=== PATIENT | female | born 1965 | race Caucasian/White ===

== ENCOUNTER 2020-02-17 15:09 | Day surgery (SDC) | payer OTHER ==
[~2020-02-17 15:09] MED LIST: Bupivacaine PF 0.75% SDV 10 ML ONE; CEFAZOLIN 1 GM VIAL ONE; Dexamethasone 20 MG/5 ML VIAL ONE; Enoxaparin Sodium 30 MG/0.3 ML SYRINGE ONE; Lidocaine 1% PF 5 ML VIAL ONE; Lidocaine 4% PF 5 ML AMP ONE; Maxitrol 0.1% Opth Oint 3.5 GM TUBE ONE; Ondansetron PF 4 MG/2 ML Vial ONE; PROPOFOL 200 MG/20 ML VIAL ONE; Triamcinolone 40 MG/ML VIAL ONE
[2020-02-17] MEDS ORDERED: Fluorouracil 100 MG, Enoxaparin Sodium 25 MG, EPINEPHrine 0.3 MG in Ophthalmic Irrigati... IRR SCH (15:30)
[2020-02-17] MEDS ORDERED: Cyclopentolate 1% Opth Drop 2 ML BOT FS SCH (15:30)
[2020-02-17] MEDS ORDERED: Phenylephrine 2.5% Ophth Soln 5 ML BOT FS SCH (15:30)
[2020-02-17] MEDS ORDERED: Phenylephrine 2.5% Ophth Soln 5 ML BOT ONE ×3 (16:34→16:36)
[2020-02-17] MEDS ORDERED: Cyclopentolate HCl 1% 5 ML BOT ONE (16:35)
[2020-02-17] MEDS ORDERED: Midazolam HCl 2 mg/2 ml Vial ONE (16:44)
[2020-02-17] MEDS ORDERED: Fentanyl 100 MCG/2 ML VIAL ONE (17:21)
--- NOTE | 2020-02-22 09:24 | OP ---
DATE OF PROCEDURE: 02/17/2020 PREOPERATIVE DIAGNOSIS: Rhegmatogenous retinal detachment, left eye. POSTOPERATIVE DIAGNOSIS: Rhegmatogenous retinal detachment, left eye. PROCEDURE PERFORMED: Pars plana vitrectomy and retinal detachment repair, left eye. ANESTHESIA: Local with monitored anesthesia care. DESCRIPTION OF PROCEDURE: The patient was identified in the preoperative holding area. Appropriate informed consent for the planned surgical procedure on the left eye had been obtained. The patient was transported to the operative suite. Appropriate cardiopulmonary monitoring was established. Local anesthesia was obtained using retrobulbar modified Van Lint lid block using 50:50 mixture of 4% lidocaine and 0.75% bupivacaine. The patient was prepped and draped in usual sterile manner for ophthalmic surgery, left eye. Lid speculum was placed in the left eye. 25-gauge trocar was placed through conjunctiva and sclera superotemporally, inferotemporally, superonasally. Infusion line was placed inferotemporally. Light pipe vitreous cutter was inserted into the eye. Core vitrectomy was performed, 360 degree dissection of the vitreous base was performed. A posterior drained retinotomy was created inferior to the nerve. Complete air-fluid exchange was performed with 15 minutes being allowed for fluid to drain posteriorly to obtain complete drain of subretinal fluid. The tears were noted at the 12 o'clock and 6 o'clock positions. 360 laser was placed using Endolaser delivery device. 15% perfluoropropane gas was infused into the eye. Sclerotomy suture was closed with 6-0 plain gut suture. Retrobulbar Kenalog and subconjunctival Ancef were placed. Antibiotic ointment was placed. The eye was patched and shielded. The patient was taken to postoperative recovery unit in good condition, having suffered no immediate perioperative complications. The patient was instructed to keep patch and shield on, position on the left side down. Followup appointment with Dr. Loera. Job ID: [id number]
== END 2020-02-17 19:59 | disposition home or self-care (01) ==
LOC: SDC 15:09
PROVIDERS: ATTEND Ophthalmology Retina Specialist
PROC: 08T53ZZ Resection of Left Vitreous, Percutaneous Approach (ICD-10-PCS; principal; 2020-02-17)
DX: H33.022 Retinal detachment with multiple breaks, left eye (principal); Z79.899 Other long term (current) drug therapy
CPT/HCPCS: 67025; J0171; J0690; J1100; J1650; J2001; J2250; J2405; J2704; J3010; J3301; J3490; J9190